=== PATIENT | female | born 1950 | race Caucasian/White ===

== ENCOUNTER → 2018-02-11 | Outpatient (CLI) | payer BC, MEDICARE ==
[2017-09-20 09:37] VITALS: BMI 34.5
[~2018-02-11] MED LIST: ACE500 PO; ALB17R INH; AZIT1PAC21 PO; AZIT500T47 PO; BENA1TAB48 PO; BENA20TA3 PO; BENZ100C4 PO; BP PILL; CEPH-13 PO; CEPH250C37 PO; CIP500 PO; CITA10SO7 PO; CYCL10TA29 PO; DAR100 PO; DESV50TA9 PO; DOCU-202 PO; DULO30CA35 PO; DYA PO; ENA5 PO; FAMO20TA28 PO; HYDR-4309 PO; HYDR12.556 PO; HYDR28.415 TP; IBU600 PO; LAMO1000; LAMO100T52 PO; LOR5 PO; LOR5/325 PO; LOS50 PO; LOSA25TA50 PO; LOSA25TA51 PO; LOSA50TA72 PO; MIRT-20 PO; OLM20 PO; OLME1TAB54 PO; ONDA4TAB PO; OXYC-854 PO; OXYC-865 PO; PHEN120S18 PO; PRAVASTATIN; PRE20 PO; RIVA20TA PO; SULF-196 PO; TRAZ-163 PO; VENL37.594 PO; WAR25 PO; WAR5 PO; WARF-12 PO; WARF2.5T4 PO; [UNRECOGNIZED DRUG - CODE] PO
[2018-02-11 12:44] LABS: PLATELET COUNT, AUTOMATED 323 K/uL (150-450)
== END ==
LOC: LAB 12:25
PROVIDERS: ATTEND Internal Medicine
DX: I10 Essential (primary) hypertension (principal); Z86.718 Personal history of other venous thrombosis and embolism; K43.9 Ventral hernia without obstruction or gangrene
CPT/HCPCS: 36415; 81001; 82040; 82247; 82310; 82374; 82435; 82465; 82565; 82947; 83718; 84075; 84132; 84155; 84295; 84450; 84460; 84478; 84520; 85025

== ENCOUNTER → 2018-02-13 | Outpatient (CLI) | payer BC ==
[2017-09-20 09:37] VITALS: BMI 34.5
[~2018-02-13] MED LIST changes: +Work Restrictions
== END ==
LOC: AMB 19:57
PROVIDERS: ATTEND Nurse Practitioner
DX: R07.9 Chest pain, unspecified (principal); R51 Headache; Z79.01 Long term (current) use of anticoagulants
CPT/HCPCS: A0425; A0427

== ENCOUNTER → 2018-03-03 | Outpatient (CLI) | payer BC, MEDICARE ==
[2017-09-20 09:37] VITALS: BMI 34.5
--- NOTE | 2018-03-04 09:02 | RADIOLOGY IMAGING REPORT ---
FACILITY: [facility] [place] PATIENT NAME: TEJAS MOORE : [id number] MR: [id number] V: [id number] EXAM DATE: [id number] ORDERING PHYSICIAN: CARLTON ZHONG TECHNOLOGIST: Whit Garcia PROCEDURE:BILATERAL DIGITAL SCREENING MAMMOGRAM WITH CAD ASSISTED INTERPRETATION & 3D TOMOSYNTHESIS COMPARISON:None. By history this is the patient's baseline mammogram. INDICATIONS:screening FINDINGS: Mildly heterogeneous fibroglandular tissue is seen throughout the breasts. There are 2 focal areas of increased density in the lateral portion of the Right breast for which spot compression view is recommended. There is an additional area of vague architectural distortion in the upper portion of the Right breast on the Right MLO view for which spot compression view is recommended. DIAGNOSTIC CATEGORY 0--INCOMPLETE: NEED ADDITIONAL IMAGING EVALUATION. RECOMMENDATIONS: ADDITIONAL MAMMOGRAPHIC VIEWS REQUIRED: RIGHT BREAST. IMPRESSION: BIRADS 0: Incomplete Additional view of the Right breast recommended as described. Dictated by: Tanisha Colón M.D. on 03/03/2018 at 15:22 Transcribed by: TENZIN on 03/03/2018 at 15:40 Approved by: Tanisha Colón M.D. on 03/04/2018 at 9:01 [facility]
== END ==
LOC: MAMO 03:05
PROVIDERS: ATTEND Nurse Practitioner Family
DX: Z12.31 Encounter for screening mammogram for malignant neoplasm of breast (principal); R92.8 Other abnormal and inconclusive findings on diagnostic imaging of breast
CPT/HCPCS: 77063; 77067

== ENCOUNTER → 2018-03-24 | Outpatient (CLI) | payer BC, MEDICARE ==
[2017-09-20 09:37] VITALS: BMI 34.5
[~2018-03-24] MED LIST changes: +[UNRECOGNIZED DRUG - REMARK]
--- NOTE | 2018-03-24 15:08 | RADIOLOGY IMAGING REPORT ---
FACILITY: [facility] [place] PATIENT NAME: TEJAS MOORE : [id number] MR: [id number] V: [id number] EXAM DATE: [id number] ORDERING PHYSICIAN: CARLTON ZHONG TECHNOLOGIST: Whit Garcia PROCEDURE:RIGHT DIGITAL DIAGNOSTIC MAMMOGRAM WITH CAD ASSISTED INTERPRETATION & 3D TOMOSYNTHESIS COMPARISON:Prior mammograms 03/03/18. INDICATIONS:FURTHER EVAL FINDINGS: The patient returns for Spot compression views in the Right CC and MLO projection in addition to rolled views in the Right CC and MLO projections. Mildly heterogeneous fibroglandular tissue is again seen throughout the Right breast. The two focal areas of increased density in the lateral portion of the Right breast appear partially compressible. These dissipated on the rolled view. The area of vague architectural distortion in the upper portion of the Right breast on the recent Right MLO view likewise dissipated on the rolled views. There is no demonstration of malignant appearing mass, malignant appearing calcifications or other secondary sign of malignancy in the Right breast. DIAGNOSTIC CATEGORY 2--BENIGN FINDING. RECOMMENDATIONS: ROUTINE MAMMOGRAM AND CLINICAL EVALUATION. IMPRESSION: BIRADS 2: Benign finding No significant abnormality is seen. Dictated by: Tanisha Colón M.D. on 03/24/2018 at 10:43 Transcribed by: TENZIN on 03/24/2018 at 11:05 Approved by: Tanisha Colón M.D. on 03/24/2018 at 15:07 [facility]
== END ==
LOC: MAMO 03-10 01:35
PROVIDERS: ATTEND Nurse Practitioner Family
DX: R92.8 Other abnormal and inconclusive findings on diagnostic imaging of breast (principal)
CPT/HCPCS: 77065

== ENCOUNTER 2018-05-02 19:21 | Emergency (ER) | payer BC ==
[2017-09-20 09:37] VITALS: Wt 83.9 kg
[~2018-05-02 19:21] MED LIST changes: +LOSA100T67 PO
--- NOTE | 2018-05-02 19:47 | ER Report ---
History and Physical Time Seen By MD: 19:47 Hx. of Stated Complaint: patient states that for the past 3 days she has been having left leg pain; pain is in the knee area; today the knee buckled down HPI/ROS CHIEF COMPLAINT: Left knee pain HISTORY OF PRESENT ILLNESS: 67-year-old female patient presents to emergency room with complaint of left knee pain. Patient states she's been having pain for the last several days. She states that she has noticed some swelling. Patient is concerned that she may have a DVT as she has a history of DVTs in the past. Patient is currently taking Xarelto for this. She states that the pain has become so significant that her knee has buckled numerous occasions. She states she has not fallen but almost fell today. She states that her boss noticed this and recommended that she come in for evaluation. He shouldn't denies any injury to the knee recently. She states that she does have pain, which seems to be more on the lateral and medial aspects of the knee. She denies any bruising. REVIEW OF SYSTEMS: Respiratory: No cough, no dyspnea. Cardiovascular: No chest pain, no palpitations. Gastrointestinal: No vomiting, no abdominal pain. Musculoskeletal: As noted above Allergies: Coded Allergies: trazodone (Verified Allergy, Intermediate, rash, 05/02/18) duloxetine (Verified Allergy, Mild, gout, 05/02/18) stopped by her psych doc due to possible gout reaction iohexol (Verified Allergy, Unknown, 05/02/18) Uncoded Allergies: BANDAIDS (Allergy, Intermediate, ITCHING, 05/21/13) PT STATES SHE GETS ITCHY AND BLISTERS AROUND WOUND ON LEFT ANKLE WHEN SHE WEARS BANDAIDS DOG (Allergy, Mild, EYES MATTED SWELLING, 07/08/10) Contrast Dye (Allergy, Unknown, 11/07/17) IV contrast (Allergy, Unknown, hives, 12/13/14) Home Meds Active Scripts Tramadol Hcl (TRAMADOL HCL) 50 Mg Tablet, 50 MG PO Q4-6H Y for PAIN, #12 TAB Prov:NICHOL CORCORAN LINE PILOT 05/02/18 Hydrochlorothiazide (HYDROCHLOROTHIAZIDE) 12.5 Mg Capsule, 1 TAB PO QDAY, #90 CAPSULE 3 Refills TAKE ONE CAPSULE BY MOUTH EVERY DAY Prov:CARLTON ZHONG APRN LINE PILOT-C 04/25/18 Losartan Potassium (LOSARTAN POTASSIUM) 100 Mg Tablet, 1 TAB PO QDAY, #90 TAB 1 Refill Prov:CARLTON ZHONG APRN LINE PILOT-C 04/08/18 Rivaroxaban 20 Mg (XARELTO 20 MG) 20 Mg Tablet, 1 TAB PO DAILY, #90 TAB 3 Refills Prov:CYNDY JOHN MD 11/19/17 Discontinued Scripts [Off work] No Conflict Check Please excuse Ms. Arreola from work, Thursday 03/22 and Friday 03/23 due to illness. Prov:ELMER WIGGINS Vladimir LINE PILOT-BC 03/21/18 [Work Restrictions] No Conflict Check Prov:CARLTON ZHONG APRN LINE PILOT-C 02/25/18 Past Medical/Surgical History Patient has a past medical history of DVT, pulmonary embolism, hypertension, pneumonia, reflux, cholecystitis, hiatal hernia, left ankle fracture, back pain , depression, anxiety, suicide attempt. Patient has a surgical history of easy ALT for venous ulcer, tonsillectomy, left knee surgery, hysterectomy, removal of polyp and system:, Hernia repair. Patient has a family medical history of cancer, CAD, diabetes, psychiatric problems. Reviewed Nurses Notes: Yes Hx Smoking: Yes (QUIT 1994, 12/03 PPD X 20 YEARS ) Smoking Status: Former Smoker Exposure to Second Hand Smoke?: No Hx Substance Use Disorder: No Hx Alcohol Use: No Constitutional Vital Sign - Last 24 Hours 05/02/18 05/02/18 05/02/18 05/02/18 19:25 19:28 19:30 19:45 Temp 98.6 Pulse 80 Resp 18 B/P (MAP) 128/83 (98) 128/83 106/76 (86) 87/62 (70) Pulse Ox 95 O2 Delivery Room Air 05/02/18 05/02/18 05/02/18 05/02/18 19:51 20:00 20:15 20:21 Pulse 72 71 B/P (MAP) 116/75 (89) 106/85 (92) Pulse Ox 94 93 05/02/18 05/02/18 05/02/18 05/02/18 20:30 20:45 20:51 21:00 Pulse 66 B/P (MAP) 94/72 (79) 101/69 (80) 101/65 (77) Pulse Ox 95 6/1/18 6/1/18 6/1/18 6/1/18 21:15 21:20 21:30 21:45 Pulse 71 B/P (MAP) 114/77 (89) 97/65 (76) 114/70 (85) Pulse Ox 90 05/02/18 05/02/18 21:50 22:02 Pulse 61 85 Resp 16 B/P (MAP) 115/72 (86) Pulse Ox 94 92 O2 Delivery Room Air Physical Exam General Appearance: The patient is alert, has no immediate need for airway protection and no current signs of toxicity. Respiratory: Chest is non tender, lungs are clear to auscultation. Cardiac: regular rate and rhythm Gastrointestinal: Abdomen is soft and non tender, no masses, bowel sounds normal. Musculoskeletal: Neck: Neck is supple and non tender. Extremities have full range of motion and are non tender. Patient does have tenderness to the left knee, there is no bruising, left leg does seem slightly larger than the right. Patient has good pulses. Skin: No rashes or lesions. DIFFERENTIAL DIAGNOSIS: After history and physical exam differential diagnosis was considered for DVT, knee strain, knee sprain, osteoarthritis, knee pain. Medical Decision Making Data Points Result Diagram: 05/02/18202005/02/182020 Laboratory Hematology Test 05/02/18 20:21 Red Blood Count 4.60 M/uL (4.17-5.56) Mean Corpuscular Volume 84.4 fL (80.0-96.0) Mean Corpuscular Hemoglobin 29.1 pg (26.0-33.0) Mean Corpuscular Hemoglobin Concent 34.5 g/dL (32.0-36.0) Red Cell Distribution Width 15.2 % (11.5-14.5) Mean Platelet Volume 7.3 fL (7.2-11.1) Neutrophils (%) (Auto) 72.3 % (39.4-72.5) Lymphocytes (%) (Auto) 18.7 % (17.6-49.6) Monocytes (%) (Auto) 7.2 % (4.1-12.4) Eosinophils (%) (Auto) 1.2 % (0.4-6.7) Basophils (%) (Auto) 0.6 % (0.3-1.4) Nucleated RBC Relative Count (auto) 0.1 /100WBC Neutrophils # (Auto) 5.2 K/uL (2.0-7.4) Lymphocytes # (Auto) 1.3 K/uL (1.3-3.6) Monocytes # (Auto) 0.5 K/uL (0.3-1.0) Eosinophils # (Auto) 0.1 K/uL (0.0-0.5) Basophils # (Auto) 0.0 K/uL (0.0-0.1) Nucleated RBC Absolute Count (auto) 0.01 K/uL Prothrombin Time 14.4 seconds (12.0-14.4) Prothromb Time International Ratio 1.11 Activated Partial Thromboplast Time 29 seconds (23-35) Sodium Level 139 mmol/L (137-145) Potassium Level 3.4 mmol/L (3.5-5.0) Chloride Level 101 mmol/L (98-107) Carbon Dioxide Level 26 mmol/L (22-31) Blood Urea Nitrogen 19 mg/dl (7-18) Creatinine 1.30 mg/dl (0.52-1.04) Glomerular Filtration Rate Calc 41.1 Random Glucose 97 mg/dl (75-110) Calcium Level 9.0 mg/dl (8.4-10.2) Total Bilirubin 0.8 mg/dl (0.2-1.3) Aspartate Amino Transf (AST/SGOT) 16 U/L (0-35) Alanine Aminotransferase (ALT/SGPT) 19 U/L (0-56) Alkaline Phosphatase 104 U/L (0-126) Troponin I < 0.012 ng/ml Total Protein 6.7 gm/dl (6.3-8.2) Albumin 4.0 g/dl (3.5-5.0) Chemistry Test 05/02/18 20:21 White Blood Count 7.2 k/uL (4.5-11.0) Red Blood Count 4.60 M/uL (4.17-5.56) Hemoglobin 13.4 g/dL (12.0-16.0) Hematocrit 38.8 % (34.0-47.0) Mean Corpuscular Volume 84.4 fL (80.0-96.0) Mean Corpuscular Hemoglobin 29.1 pg (26.0-33.0) Mean Corpuscular Hemoglobin Concent 34.5 g/dL (32.0-36.0) Red Cell Distribution Width 15.2 % (11.5-14.5) Platelet Count 258 K/uL (150-450) Mean Platelet Volume 7.3 fL (7.2-11.1) Neutrophils (%) (Auto) 72.3 % (39.4-72.5) Lymphocytes (%) (Auto) 18.7 % (17.6-49.6) Monocytes (%) (Auto) 7.2 % (4.1-12.4) Eosinophils (%) (Auto) 1.2 % (0.4-6.7) Basophils (%) (Auto) 0.6 % (0.3-1.4) Nucleated RBC Relative Count (auto) 0.1 /100WBC Neutrophils # (Auto) 5.2 K/uL (2.0-7.4) Lymphocytes # (Auto) 1.3 K/uL (1.3-3.6) Monocytes # (Auto) 0.5 K/uL (0.3-1.0) Eosinophils # (Auto) 0.1 K/uL (0.0-0.5) Basophils # (Auto) 0.0 K/uL (0.0-0.1) Nucleated RBC Absolute Count (auto) 0.01 K/uL Prothrombin Time 14.4 seconds (12.0-14.4) Prothromb Time International Ratio 1.11 Activated Partial Thromboplast Time 29 seconds (23-35) Glomerular Filtration Rate Calc 41.1 Calcium Level 9.0 mg/dl (8.4-10.2) Total Bilirubin 0.8 mg/dl (0.2-1.3) Aspartate Amino Transf (AST/SGOT) 16 U/L (0-35) Alanine Aminotransferase (ALT/SGPT) 19 U/L (0-56) Alkaline Phosphatase 104 U/L (0-126) Troponin I < 0.012 ng/ml Total Protein 6.7 gm/dl (6.3-8.2) Albumin 4.0 g/dl (3.5-5.0) Coagulation Test 05/02/18 20:21 Prothrombin Time 14.4 seconds Prothromb Time International Ratio 1.11 Activated Partial Thromboplast Time 29 seconds EKG/Imaging EKG Interpretation 12 lead EKG: Rhythm: normal sinus rhythm [place]: normal QRS: normal ST segments: Nonspecific T-wave abnormality. Imaging Examination: KNEE 4 VIEW LEFT Comparison: None. History: Posterior knee pain for 3 days. Findings: No fracture. Alignment is within normal limits. Animal femorotibial and patellofemoral compartment joint space loss. Superior patellar pole spurring. No joint effusion. No soft tissue abnormality. IMPRESSION: 1. No left knee fracture or malalignment. 2. Minimal degenerative change. Report Dictated By: Stephon Hameed MD at 05/02/2018 8:18 PM Report E-Signed By: Stephon Hameed MD at 05/02/2018 8:19 PM EXAMINATION: LEFT LOWER EXTREMITY DOPPLER VENOUS ULTRASOUND DATE: 05/02/2018 7:52 PM INDICATION: Knee pain, history of deep vein thrombosis. TECHNIQUE: Grayscale, color and pulsed Doppler ultrasound was performed of the left lower extremity veins to evaluate for deep venous thrombosis. COMPARISON: 12/01/2016. FINDINGS: The left common femoral, superficial femoral, and popliteal veins are compressible with normal flow on color Doppler and preserved venous waveform variation. There is also normal color Doppler flow in the profunda femoris and greater saphenous veins. The left posterior tibial and anterior tibial veins have patent color Doppler flow. The contralateral right common femoral vein demonstrates normal flow on color Doppler and respiratory variations on pulsed Doppler. IMPRESSION: No evidence of deep venous thrombosis in the left lower extremity. Report Dictated By: Uri Chacon MD at 05/02/2018 9:29 PM Report E-Signed By: Uri Chacon MD at 05/02/2018 9:31 PM ED Course/Re-evaluation ED Course Patient was admitted to exam room, history and physical were obtained. Differential diagnoses were considered. On examination patient has tenderness to the left knee, both medial and lateral sides. There is swelling to the left lower extremity, however believe this likely normal for the patient. An x-ray was done of the left knee, a ultrasound was performed of the left leg as well. A CBC, CMP, PT, PTT, troponin and EKG were done. EKG was unremarkable, labs were also unremarkable. Left knee x-ray was normal and ultrasound of the left leg was negative. Discuss findings with the patient. We'll go ahead and place her in a knee immobilizer. We'll have her follow-up with her primary care provider next week. She is to take tramadol as needed for pain for the next couple days. She is to return to emergency room if condition worsens. Patient verbalized understanding and agreement with plan. Decision to Disposition Date: May 02, 2018 Decision to Disposition Time: 21:45 Depart Departure Latest Vital Signs Vital Signs Date Time Temp Pulse Resp B/P (MAP) Pulse Ox O2 Delivery O2 Flow Rate FiO2 05/02/18 22:02 85 16 115/72 (86) 92 Room Air 05/02/18 19:28 98.6 Impression: Primary Impression: Knee pain, acute Condition: Improved Disposition: HOME OR SELF-CARE Referrals: CYNDY JOHN MD (PCP) New Scripts Tramadol Hcl (TRAMADOL HCL) 50 Mg Tablet 50 MG PO Q4-6H Y for PAIN, #12 TAB Prov: NICHOL CORCORAN 05/02/18 Patient Instructions: Knee Pain (ED) Additional Instructions: Limit activity by pain. Ice the knee 2-3 times a day for 10-15 minutes. Get plenty of rest. Follow up with your primary care provider in the next week. Return to the ER if condition worsens. No heavy lifting. Problem Qualifiers Primary Impression: Knee pain, acute Laterality: left Qualified Codes: M25.562 - Pain in left knee NICHOL CORCORAN May 02, 2018 19:47
--- NOTE | 2018-05-02 20:24 | RADIOLOGY IMAGING REPORT ---
FACILITY: [facility] PATIENT NAME: Cindy Arreola : 1950 MR: [id number] V: [id number] EXAM DATE: ORDERING PHYSICIAN: NICHOL CORCORAN TECHNOLOGIST: Location: [facility] Patient: Cindy Arreola : 1950 Visit/Account:[id number] Date of Sevice: 05/02/2018 Examination: KNEE 4 VIEW LEFT Comparison: None. History: Posterior knee pain for 3 days. Findings: No fracture. Alignment is within normal limits. Animal femorotibial and patellofemoral comp artment joint space loss. Superior patellar pole spurring. No joint effusion. No soft tissue abnormal ity. IMPRESSION: 1. No left knee fracture or malalignment. 2. Minimal degenerative change. Report Dictated By: Stephon Hameed MD at 05/02/2018 8:18 PM Report E-Signed By: Stephon Hameed MD at 05/02/2018 8:19 PM WSN:[id number]
[2018-05-02 20:33] LABS: PLATELET COUNT, AUTOMATED 258 K/uL (150-450)
[2018-05-02 20:35] LABS: INR 1.11
--- NOTE | 2018-05-02 20:35 | EKG ---
FACILITY: [facility] PATIENT NAME: TEJAS MOORE : [id number] MR: [id number] V: [id number] EXAM DATE: ORDERING PHYSICIAN: NICHOL CORCORAN TECHNOLOGIST: NEO Test Reason : L LEG NUMBNESS Blood Pressure : / mmHG Vent. Rate : 066 BPM Atrial Rate : 066 BPM P-R Int : 130 ms QRS Dur : 074 ms QT Int : 428 ms P-R-T Axes : 036 -21 006 degrees QTc Int : 448 ms Normal sinus rhythm Possible Left atrial enlargement Septal infarct , age undetermined T wave abnormality, consider anterior ischemia Abnormal ECG When compared with ECG of 01-DEC-2016 12:12, Septal infarct is now present T wave inversion now evident in Anterior leads Confirmed by LIZETH PRIEST ([id number]) on 05/03/2018 6:30:40 AM Referred By: Confirmed By:LIZETH PRIEST
--- NOTE | 2018-05-02 21:34 | RADIOLOGY IMAGING REPORT ---
FACILITY: [facility] [place] PATIENT NAME: Cindy Arreola : 1950 MR: [id number] V: [id number] EXAM DATE: ORDERING PHYSICIAN: NICHOL CORCORAN TECHNOLOGIST: Location: [facility] Patient: Cindy Arreola : 1950 Visit/Account:[id number] Date of Sevice: 05/02/2018 EXAMINATION: LEFT LOWER EXTREMITY DOPPLER VENOUS ULTRASOUND DATE: 05/02/2018 7:52 PM INDICATION: Knee pain, history of deep vein thrombosis. TECHNIQUE: Grayscale, color and pulsed Doppler ultrasound was performed of the left lower extremity v [facility] to evaluate for deep venous thrombosis. COMPARISON: 12/01/2016. FINDINGS: The left common femoral, superficial femoral, and popliteal veins are compressible with normal flow o n color Doppler and preserved venous waveform variation. There is also normal color Doppler flow in t he profunda femoris and greater saphenous veins. The left posterior tibial and anterior tibial veins have patent color Doppler flow. The contralateral right common femoral vein demonstrates normal flow on color Doppler and respiratory variations on pulsed Doppler. IMPRESSION: No evidence of deep venous thrombosis in the left lower extremity. Report Dictated By: Uri Chacon MD at 05/02/2018 9:29 PM Report E-Signed By: Uri Chacon MD at 05/02/2018 9:31 PM WSN:[id number]
[2018-05-02] MEDS ORDERED: TRAM-420 PO (21:43)
[2018-05-02] MEDS ORDERED: traMADol 50 MG TAB PO ONE (21:45)
[2018-05-02 22:02] VITALS: BP 115/72
== END 2018-05-02 22:05 | disposition home or self-care (01) ==
LOC: ER 19:53
DX: M25.562 Pain in left knee (principal); R94.31 Abnormal electrocardiogram [ECG] [EKG]
CPT/HCPCS: 73564; 82040; 82247; 82310; 82374; 82435; 82565; 82947; 84075; 84132; 84155; 84295; 84450; 84460; 84484; 84520; 85025; 85610; 85730; 93005; 99283; 99284

== ENCOUNTER 2018-07-16 16:08 | Emergency (ER) | payer BC ==
[2017-09-20 09:37] VITALS: Wt 94.8 kg
[~2018-07-16 16:08] MED LIST changes: +TRAM-420 PO; -TRAZ-163 PO; +TRAZ100T31 PO
[2018-07-16] MEDS ORDERED: ASPIRIN 81 MG CHEW PO ONE (16:20)
--- NOTE | 2018-07-16 16:24 | EKG ---
[place] [facility] TEJAS MOORE : [id number] MR: [id number] V: [id number] EXAM DATE: ORDERING PHYSICIAN: EMERALD QUINTANILLA TECHNOLOGIST: RIDGE Test Reason : SOB Blood Pressure : / mmHG Vent. Rate : 088 BPM Atrial Rate : 088 BPM P-R Int : 140 ms QRS Dur : 072 ms QT Int : 372 ms P-R-T Axes : 028 -23 016 degrees QTc Int : 450 ms Normal sinus rhythm Possible Left atrial enlargement Borderline ECG When compared with ECG of 02-MAY-2018 20:16, Criteria for Septal infarct are no longer present Confirmed by INA STREET ([id number]) on 07/16/2018 9:39:01 PM Referred By: DWIGHT Confirmed By:INA STREET
[2018-07-16 16:30] LABS: PLATELET COUNT, AUTOMATED 338 K/uL (150-450)
[2018-07-16] MEDS ORDERED: diphenhydrAMINE 50 MG/ML VIAL IVP ONE (16:30)
[2018-07-16] MEDS ORDERED: methylPREDNIS SUCC 125 MG/2ML IVP ONE (16:30)
[2018-07-16 16:35] LABS: INR 1.11
--- NOTE | 2018-07-16 16:51 | RADIOLOGY IMAGING REPORT ---
FACILITY: [facility] [place] PATIENT NAME: Cindy Arreola : 1950 MR: [id number] V: [id number] EXAM DATE: ORDERING PHYSICIAN: EMERALD QUINTANILLA TECHNOLOGIST: [place] [facility] [place]: Cindy Arreola : 1950 Visit/Account:[id number] Date of Sevice: 07/16/2018 Exam type: CHEST SINGLE AP History: Chest pain x3 days Comparison: Two-view chest March 17, 2016. Findings: The lungs are free of acute effusions, infiltrates or edema. The cardiomediastinal silhouette and pu lmonary vessels appear stable. There is no evidence of a pneumothorax or pneumomediastinum. The tra vicky is in midline. There are surgical clips in right upper quadrant abdomen IMPRESSION: 1. No acute cardiopulmonary process is seen Report Dictated By: Tanisha Colón MD at 07/16/2018 4:45 PM Report E-Signed By: Tanisha Colón MD at 07/16/2018 4:46 PM WSN:[email or web address]
[2018-07-16] MEDS ORDERED: IOPAMIDOL 76% 75 ML INFUS BTL 75 ML ONE (16:52)
[2018-07-16] MEDS ORDERED: NS 0.9% 25 ML BAG 50 ML ONE (16:52)
[2018-07-16] MEDS ORDERED: NS(*) 0.9% 1000 ML BAG 1,000 ML IV ONE (16:55)
--- NOTE | 2018-07-16 17:31 | ER Report ---
History and Physical Time Seen By MD: 16:11 Hx. of Stated Complaint: PATIENT REPORTS SHORTNESS OF BREATH AND BACK PAIN FOR THE LAST WEEK. SHE REPORTS THAT THE PAIN IS WORSE WITH DEEP INSPIRATION HPI/ROS CHIEF COMPLAINT: Shortness of breath HISTORY OF PRESENT ILLNESS: Patient is a 67-year-old female who presents the ED with complaint of shortness of breath and chest pain. She states that she has had these symptoms for the past week but have been worsening. She states it has been intermittent. She states that the chest pain goes into her back at times and seems to be worse with deep breaths. 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 She states that she has not missed any doses of her Xarelto. She denies any leg pain but has noted bilateral leg swelling. She has had issues with leg swelling in the past. She denies any history of heart disease. Patient has not taken any medication for her symptoms. She denies any dizziness. She denies any radiation of the pain. She does not believe that the pain is worsened with exertion. REVIEW OF SYSTEMS: Constitutional: No fever, no chills. Eyes: No discharge. ENT: No sore throat. Cardiovascular: See history of present illness. No palpitations. Respiratory: See history of present illness. No cough. Gastrointestinal: No abdominal pain, no vomiting. Genitourinary: No hematuria. Musculoskeletal: No back pain. Skin: No rashes. Neurological: No headache. Allergies: Coded Allergies: trazodone (Verified Allergy, Intermediate, rash, 05/02/18) duloxetine (Verified Allergy, Mild, gout, 05/02/18) stopped by her psych doc due to possible gout reaction iohexol (Verified Allergy, Unknown, 05/02/18) Uncoded Allergies: BANDAIDS (Allergy, Intermediate, ITCHING, 05/21/13) PT STATES SHE GETS ITCHY AND BLISTERS AROUND WOUND ON LEFT ANKLE WHEN SHE WEARS BANDAIDS DOG (Allergy, Mild, EYES MATTED SWELLING, 07/08/10) Contrast Dye (Allergy, Unknown, 11/07/17) IV contrast (Allergy, Unknown, hives, 12/13/14) Home Meds Active Scripts Tramadol Hcl (TRAMADOL HCL) 50 Mg Tablet, 50 MG PO Q4-6H Y for PAIN, #12 TAB Prov:NICHOL CORCORAN SPINNER OPERATOR 05/02/18 Hydrochlorothiazide (HYDROCHLOROTHIAZIDE) 12.5 Mg Capsule, 1 TAB PO QDAY, #90 CAPSULE 3 Refills TAKE ONE CAPSULE BY MOUTH EVERY DAY Prov:TREVINCARLTON NISH SPINNER OPERATOR-C 04/25/18 Losartan Potassium (LOSARTAN POTASSIUM) 100 Mg Tablet, 1 TAB PO QDAY, #90 TAB 1 Refill Prov:CARLTON ZHONG APRNP-C 04/08/18 Rivaroxaban 20 Mg (XARELTO 20 MG) 20 Mg Tablet, 1 TAB PO DAILY, #90 TAB 3 Refills Prov:CYNDY JOHN MD 11/19/17 Reviewed Nurses Notes: Yes Old Medical Records Reviewed: Yes Hx Smoking: Yes (QUIT 1994, 12/03 PPD X 20 YEARS ) Smoking Status: Former Smoker Exposure to Second Hand Smoke?: No Hx Substance Use Disorder: No Hx Alcohol Use: No Constitutional Vital Sign - Last 24 Hours 07/16/18 07/16/18 07/16/18 07/16/18 16:10 16:10 16:23 16:30 Temp 97.5 Pulse 95 83 Resp 20 12 B/P (MAP) 106/80 (89) 106/80 90/62 (71) Pulse Ox 93 94 O2 Delivery Room Air 07/16/18 07/16/18 07/16/18 07/16/18 16:35 16:50 17:00 17:05 Pulse 86 86 76 Resp 30 13 B/P (MAP) 126/91 (103) Pulse Ox 95 93 97 07/16/18 07/16/18 07/16/18 07/16/18 17:10 17:30 17:40 18:00 Pulse 71 72 Resp 9 19 B/P (MAP) 123/76 (92) 102/64 (77) Pulse Ox 99 95 Intake and Output 07/16/18 07/16/18 07/17/18 14:59 22:59 06:59 Intake Total 1000 ml Balance 1000 ml Physical Exam General Appearance: The patient is alert, has no immediate need for airway protection and no signs of toxicity. Patient appears to be no acute distress. Eyes: Pupils equal and round no pallor or injection. ENT, Mouth: Mucous membranes are moist. Respiratory: There are no retractions, lungs are clear to auscultation. Cardiovascular: Regular rate and rhythm. Gastrointestinal: Abdomen is soft and non tender, no masses, bowel sounds normal. Skin: Warm and dry, no rashes. Musculoskeletal: Neck is supple non tender. Extremities are nontender, nonswollen and have full range of motion. DIFFERENTIAL DIAGNOSIS: After history and physical exam differential diagnosis was considered for shortness of breath including but not limited to pulmonary infectious process, COPD, asthma, pulmonary embolus and congestive heart failure. Medical Decision Making Data Points Result Diagram: 07/16/18 1613 07/16/18 1613 Laboratory Hematology Test 07/16/18 16:13 07/16/18 19:17 Red Blood Count 5.27 M/uL (4.17-5.56) Mean Corpuscular Volume 84.1 fL (80.0-96.0) Mean Corpuscular Hemoglobin 29.0 pg (26.0-33.0) Mean Corpuscular Hemoglobin Concent 34.5 g/dL (32.0-36.0) Red Cell Distribution Width 14.8 % (11.5-14.5) Mean Platelet Volume 7.7 fL (7.2-11.1) Neutrophils (%) (Auto) 76.7 % (39.4-72.5) Lymphocytes (%) (Auto) 15.5 % (17.6-49.6) Monocytes (%) (Auto) 6.1 % (4.1-12.4) Eosinophils (%) (Auto) 1.0 % (0.4-6.7) Basophils (%) (Auto) 0.7 % (0.3-1.4) Nucleated RBC Relative Count (auto) 0.0 /100WBC Neutrophils # (Auto) 7.5 K/uL (2.0-7.4) Lymphocytes # (Auto) 1.5 K/uL (1.3-3.6) Monocytes # (Auto) 0.6 K/uL (0.3-1.0) Eosinophils # (Auto) 0.1 K/uL (0.0-0.5) Basophils # (Auto) 0.1 K/uL (0.0-0.1) Nucleated RBC Absolute Count (auto) 0.00 K/uL Prothrombin Time 14.4 seconds (12.0-14.4) Prothromb Time International Ratio 1.11 Activated Partial Thromboplast Time 30 seconds (23-35) Sodium Level 142 mmol/L (137-145) Potassium Level 3.4 mmol/L (3.5-5.0) Chloride Level 102 mmol/L (98-107) Carbon Dioxide Level 27 mmol/L (22-31) Blood Urea Nitrogen 20 mg/dl (7-18) Creatinine 1.40 mg/dl (0.52-1.04) Glomerular Filtration Rate Calc 37.7 Random Glucose 127 mg/dl (75-110) Calcium Level 9.6 mg/dl (8.4-10.2) Total Bilirubin 0.8 mg/dl (0.2-1.3) Aspartate Amino Transf (AST/SGOT) 21 U/L (0-35) Alanine Aminotransferase (ALT/SGPT) 18 U/L (0-56) Alkaline Phosphatase 95 U/L (0-126) B-Type Natriuretic Peptide 12 pg/ml (0-100) Total Protein 7.7 g/dl (6.3-8.2) Albumin 4.7 g/dl (3.5-5.0) Troponin I < 0.012 ng/ml Chemistry Test 07/16/18 16:13 07/16/18 19:17 White Blood Count 9.8 k/uL (4.5-11.0) Red Blood Count 5.27 M/uL (4.17-5.56) Hemoglobin 15.3 g/dL (12.0-16.0) Hematocrit 44.3 % (34.0-47.0) Mean Corpuscular Volume 84.1 fL (80.0-96.0) Mean Corpuscular Hemoglobin 29.0 pg (26.0-33.0) Mean Corpuscular Hemoglobin Concent 34.5 g/dL (32.0-36.0) Red Cell Distribution Width 14.8 % (11.5-14.5) Platelet Count 338 K/uL (150-450) Mean Platelet Volume 7.7 fL (7.2-11.1) Neutrophils (%) (Auto) 76.7 % (39.4-72.5) Lymphocytes (%) (Auto) 15.5 % (17.6-49.6) Monocytes (%) (Auto) 6.1 % (4.1-12.4) Eosinophils (%) (Auto) 1.0 % (0.4-6.7) Basophils (%) (Auto) 0.7 % (0.3-1.4) Nucleated RBC Relative Count (auto) 0.0 /100WBC Neutrophils # (Auto) 7.5 K/uL (2.0-7.4) Lymphocytes # (Auto) 1.5 K/uL (1.3-3.6) Monocytes # (Auto) 0.6 K/uL (0.3-1.0) Eosinophils # (Auto) 0.1 K/uL (0.0-0.5) Basophils # (Auto) 0.1 K/uL (0.0-0.1) Nucleated RBC Absolute Count (auto) 0.00 K/uL Prothrombin Time 14.4 seconds (12.0-14.4) Prothromb Time International Ratio 1.11 Activated Partial Thromboplast Time 30 seconds (23-35) Glomerular Filtration Rate Calc 37.7 Calcium Level 9.6 mg/dl (8.4-10.2) Total Bilirubin 0.8 mg/dl (0.2-1.3) Aspartate Amino Transf (AST/SGOT) 21 U/L (0-35) Alanine Aminotransferase (ALT/SGPT) 18 U/L (0-56) Alkaline Phosphatase 95 U/L (0-126) B-Type Natriuretic Peptide 12 pg/ml (0-100) Total Protein 7.7 g/dl (6.3-8.2) Albumin 4.7 g/dl (3.5-5.0) Troponin I < 0.012 ng/ml Coagulation Test 07/16/18 16:13 Prothrombin Time 14.4 seconds Prothromb Time International Ratio 1.11 Activated Partial Thromboplast Time 30 seconds EKG/Imaging EKG Interpretation 12 lead EK Rhythm: Normal sinus rhythm, rate 80 bpm Geronimo: normal QRS: normal ST segments: No acute ST changes identified. There is some T-wave inversion in V1 and V2. 12 lead EKG: Rhythm: Normal sinus rhythm with sinus arrhythmia, rate 69 bpm Geronimo: normal QRS: normal ST segments: No acute ST changes identified. There is some T-wave inversion in V1 and T-wave flattening in V2. Monitor Interpretation: Normal Sinus Rhythm Imaging CXR: IMPRESSION: 1. No acute cardiopulmonary process is seen Report Dictated By: Tanisha Colón MD at 07/16/2018 4:45 PM Report E-Signed By: Tanisha Colón MD at 07/16/2018 4:46 PM CTA Chest PE Protocol: IMPRESSION: Negative for pulmonary arterial embolus. One of the following dose optimization techniques was utilized in the performance of this exam: Automated exposure control; adjustment of the mA and/ or kV according to the patient's size; or use of an iterative reconstruction technique. Specific details can be referenced in the facility's radiology CT exam operational policy. Report Dictated By: Jamal Saunders MD at 07/16/2018 5:51 PM Report E-Signed By: Jamal Saunders MD at 07/16/2018 6:00 PM ED Course/Re-evaluation ED Course Will obtain labs, EKG, imaging. Discussed patient with Dr. Waldron, emergency department, and discussed her allergy to IV contrast. She states that she just had hives in the past when she had IV and by mouth contrast but has had multiple IV contrast CTs in the past. Patient will be given 1 L normal saline bolus, 50 mg IV Benadryl, 125 mg IV Solu-Medrol and have the CTA of the chest completed. 07/16/2018 8:19:07 pm - discussed all labs and imaging with patient. Waiting on a delta troponin. 07/16/2018 8:23:36 pm - discussed delta troponin results with patient which was normal. Uncertain of etiology of her chest pain and shortness of breath may be secondary to muscle skeletal issue. Advised follow-up with the primary care provider regarding these symptoms. Decision to Disposition Date: Jul 16, 2018 Decision to Disposition Time: 20:24 Depart Departure Latest Vital Signs Vital Signs Date Time Temp Pulse Resp B/P (MAP) Pulse Ox O2 Delivery O2 Flow Rate FiO2 07/16/18 18:00 102/64 (77) 07/16/18 17:40 72 19 95 07/16/18 16:10 97.5 Room Air Impression: Primary Impression: Chest pain Additional Impression: Shortness of breath Condition: Improved Disposition: HOME OR SELF-CARE Patient Instructions: Chest Pain (ED), Dyspnea (ED) Additional Instructions: Stay well-hydrated. Follow-up with primary care provider in 2-3 days. If having any worsening or concerning symptoms may return to the emergency department. Problem Qualifiers Primary Impression: Chest pain Chest pain type: unspecified Qualified Codes: R07.9 - Chest pain, unspecified EMERALD QUINTANILLA PA-C Jul 16, 2018 17:30
--- NOTE | 2018-07-16 18:03 | RADIOLOGY IMAGING REPORT ---
FACILITY: [facility] - [place] PATIENT NAME: Cindy Arreola : 1950 MR: [id number] V: [id number] EXAM DATE: ORDERING PHYSICIAN: EMERALD QUINTANILLA TECHNOLOGIST: Location: [facility] [place] Patient: Cindy Arreola : 1950 Visit/Account:[id number] Date of Sevice: 07/16/2018 CT ANGIOGRAM OF THE CHEST WITH INTRAVENOUS CONTRAST, PE PROTOCOL DATE OF EXAM: 07/16/2018 16:28 COMPARISON: Chest radiograph of the same day INDICATION: pleuritic chest pain, SOB, h/o PE and DVT. TECHNIQUE: Contrast enhanced chest CT performed during the injection of 75 ml of Isovue-370. Three-d imensional (MIP) reconstructions were performed. FINDINGS: No pulmonary arterial filling defect. Thyroid: There may be a nodule in the left lobe of the thyroid. Thoracic inlet: No thoracic inlet adenopathy. Heart and great vessels: Heart size is normal. Mild aortic arch atherosclerosis. Mediastinum and bishnu: No mediastinal or hilar adenopathy. Lungs and pleura: Mild scattered atelectasis and/or scar. No effusion, consolidation, or pneumothora x. Breast and axilla: Incompletely imaged breast tissue. Bones and soft tissues: No acute osseous abnormality. Upper abdomen: Surgically absent gallbladder. IMPRESSION: Negative for pulmonary arterial embolus. One of the following dose optimization techniques was utilized in the performance of this exam: Autom ated exposure control; adjustment of the mA and/or kV according to the patient's size; or use of an i terative reconstruction technique. Specific details can be referenced in the facility's radiology C T exam operational policy. Report Dictated By: Jamal Saunders MD at 07/16/2018 5:51 PM Report E-Signed By: Jamal Saunders MD at 07/16/2018 6:00 PM WSN:[id number]
--- NOTE | 2018-07-16 19:15 | EKG ---
FACILITY: [facility] PATIENT NAME: TEJAS MOORE : [id number] MR: [id number] V: [id number] EXAM DATE: ORDERING PHYSICIAN: EMERALD QUINTANILLA TECHNOLOGIST: RIDGE Test Reason : REPEAT Blood Pressure : / mmHG Vent. Rate : 069 BPM Atrial Rate : 069 BPM P-R Int : 134 ms QRS Dur : 074 ms QT Int : 410 ms P-R-T Axes : 048 -12 030 degrees QTc Int : 439 ms Normal sinus rhythm with sinus arrhythmia Normal ECG When compared with ECG of 16-JUL-2018 16:16, T wave inversion no longer evident in Anterior leads Confirmed by INA STREET ([id number]) on 07/16/2018 9:39:23 PM Referred By: DWIGHT Confirmed By:INA STREET
[2018-07-16 20:00] VITALS: BP 102/68
== END 2018-07-16 20:30 | disposition home or self-care (01) ==
LOC: ER 16:25
DX: R07.89 Other chest pain (principal); R06.02 Shortness of breath
CPT/HCPCS: 36415; 71045; 83880; 84484; 85025; 85610; 85730; 93005; 96361; 96374; 96375; 99284; J1200; J2930; J7030; Q9967; 71275; 82040; 82247; 82310; 82374; 82435; 82565; 82947; 84075; 84132; 84155; 84295; 84450; 84460; 84520

== ENCOUNTER → 2018-09-01 | Outpatient (CLI) | payer BC, MEDICARE ==
[2017-09-20 09:37] VITALS: BMI 34.5
[~2018-09-01] MED LIST changes: +ESCI10TA8 PO; -LOSA100T67 PO; +LOSA100T69 PO; -LOSA25TA50 PO; +LOSA25TA52 PO; -LOSA50TA72 PO; +LOSA50TA74 PO
--- NOTE | 2018-09-01 08:29 | RADIOLOGY IMAGING REPORT ---
FACILITY: [facility] PATIENT NAME: Cindy Arreola : 1950 MR: [id number] V: [id number] EXAM DATE: ORDERING PHYSICIAN: INA LEAL TECHNOLOGIST: Location: [facility] - [place] Patient: Cindy Arreola : 1950 Visit/Account:[id number] Date of Sevice: 09/01/2018 EXAMINATION: Abdomen and pelvis CT without contrast HISTORY: Abdominal pain TECHNIQUE: CT was performed through the abdomen and pelvis without iv contrast. Sagittal and coron al reformatted images were generated. One of the following dose optimization techniques was utilized in the performance of this exam: autom ated exposure control; adjustment of the mA and/or kV according to patient size; or use of iterative reconstruction technique. Specific details can be referenced in the facility's radiology CT exam ope rational policy. COMPARISON: October 04, 2017 FINDINGS: Lower chest: Normal. Spleen: Normal. Adrenal glands: Normal. Pancreas: Normal. Kidneys: Bilateral renal cysts. Otherwise normal. Liver / biliary: Surgically absent gallbladder. Normal liver. Vessels: Normal for age. Lymph node assessment: Normal. Bowel including small bowel, colon and appendix: Normal stomach, normal small bowel, suture line note d seen between a small bowel loop in the right hemicolon, axial image 79, appendix not visualized, no acute colonic abnormality. Peritoneum / retroperitoneum / mesentery: Ovoid fat-containing calcified structure in the right anter ior midabdomen in keeping with residua of prior fat necrosis or omental infarct measures 1.2 cm, axia l image 82 and exhibits increased calcification compared to prior. Pelvic structures: Normal bladder, absent uterus and normal rectum. No pelvic fluid or adenopathy . Body wall: Hernia postsurgical repair along the ventral midline abdomen. Resolution of the previousl y seen fluid collection in this area. Small ventral fat-containing hernia, axial image 80 is unchanged. Additional fat-containing ventral hernia measuring 5.2 cm is unchanged. Musculoskeletal: No fracture or osseous destruction. IMPRESSION: 1. No acute abnormality. 2. Unchanged fat-containing ventral midline hernias the largest measuring 5.2 cm. 3. Ventral hernia repair postsurgical change along the mid to lower abdomen with resolution of the p reviously seen fluid collection in this area. 4. Surgically absent gallbladder and uterus. Report Dictated By: Nick George MD at 09/01/2018 8:15 AM Report E-Signed By: Nick George MD at 09/01/2018 8:26 AM WSN:[email or web address]
== END ==
LOC: CT 01:17
PROVIDERS: ATTEND Surgery
DX: N28.1 Cyst of kidney, acquired (principal); Z90.49 Acquired absence of other specified parts of digestive tract; Z98.890 Other specified postprocedural states; K43.9 Ventral hernia without obstruction or gangrene; Z90.710 Acquired absence of both cervix and uterus; R10.84 Generalized abdominal pain; R19.7 Diarrhea, unspecified
CPT/HCPCS: 74176; 82274; 82705; 83630; 87045; 87177; 87205; 87324; 87449

== ENCOUNTER → 2018-09-08 | Outpatient (CLI) | payer BC, MEDICARE ==
[2017-09-20 09:37] VITALS: BMI 34.5
[~2018-09-08] MED LIST changes: +RAME8TAB43 PO
== END ==
LOC: LAB 10:40
PROVIDERS: ATTEND Nurse Practitioner Family
DX: I10 Essential (primary) hypertension (principal)
CPT/HCPCS: 36415; 82310; 82374; 82435; 82565; 82947; 84132; 84295; 84520

== ENCOUNTER 2018-09-24 00:31 | Day surgery (SDC) | payer BC, MEDICARE ==
[2017-09-20 09:37] VITALS: Ht 170.2 cm; Wt 87.5 kg
[2018-09-24] VITALS (8 sets, daily range): BP systolic 92–157; BP diastolic 56–118
[~2018-09-24] VITALS: Ht 170.2 cm; Wt 87.5 kg
[~2018-09-24 00:31] MED LIST changes: -HYDR-4309 PO; +HYDR-653 PO
[2018-09-24] MEDS ORDERED: LIDOCAINE/SOD BICARB 8.4% SYR ID ONE (08:55)
[2018-09-24] MEDS ORDERED: NORMOSOL R SOLN(*) 1000 ML BAG 1,000 ML IV PRN (08:55)
[2018-09-24] MEDS ORDERED: LIDOCAINE MPF 1% 5 ML VIAL ONE (10:00)
[2018-09-24] MEDS ORDERED: PROPOFOL EMUL(*) 10MG/ML 20 ML 40 ML ONE (10:00)
--- NOTE | 2018-09-24 10:10 | Short(Outpt) Discharge Summary ---
Discharge Summary Reason for Hosp/Final Diag: (1) Diarrhea Status: Chronic Hospital Course & Plan: Colonoscopy with biopsies completed without problems. (2) RLQ abdominal pain Status: Acute (3) Mucinous cystadenoma Status: Resolved Departure Discharge to: Home, Self Care Discharge Instructions Home Meds Active Scripts Ramelteon (ROZEREM) 8 Mg Tablet, 1 TAB PO QHS PRN for INSOMNIA, #14 TAB 0 Refills Prov:CARLTON ZHONG APRN OIL AND GAS LEASE PUMPER-C 09/09/18 Escitalopram Oxalate (ESCITALOPRAM OXALATE) 10 Mg Tablet, 1 TAB PO QDAY, #30 TAB 1 Refill Prov:CARLTON ZHONG APRN OIL AND GAS LEASE PUMPER-C 08/12/18 Tramadol Hcl (TRAMADOL HCL) 50 Mg Tablet, 50 MG PO Q4-6H PRN for PAIN, #12 TAB Prov:NICHOL CORCORAN OIL AND GAS LEASE PUMPER 05/02/18 Rivaroxaban 20 Mg (XARELTO 20 MG) 20 Mg Tablet, 1 TAB PO DAILY, #90 TAB 3 Refills Prov:CYNDY JOHN MD 11/19/17 Reported Medications Losartan Potassium (LOSARTAN POTASSIUM) 50 Mg Tablet, 1 TAB PO QDAY 08/12/18 Diet: Regular Activity: As Tolerated Special Instructions: Your colonscopy was completed without any problems and your prep was acceptable. I took biopsies of your small intestine you throughout your colon. I will discuss these results with you when I see you back in my office. Problem Qualifiers (1) Diarrhea: Diarrhea type: unspecified type Qualified Codes: R19.7 - Diarrhea, unspecified INA LEAL MD Sep 24, 2018 10:10
== END 2018-09-24 11:20 | disposition home or self-care (01) ==
LOC: OR 00:31
PROVIDERS: ATTEND Surgery
DX: K52.9 Noninfective gastroenteritis and colitis, unspecified (principal); K63.3 Ulcer of intestine; I10 Essential (primary) hypertension; I26.99 Other pulmonary embolism without acute cor pulmonale; F32.9 Major depressive disorder, single episode, unspecified; Z90.49 Acquired absence of other specified parts of digestive tract; Z88.8 Allergy status to other drugs, medicaments and biological substances; Z90.710 Acquired absence of both cervix and uterus; Z87.891 Personal history of nicotine dependence
CPT/HCPCS: 00811; 45380; 45385; 88305; J2001; J2704

== ENCOUNTER → 2018-10-06 | Outpatient (CLI) | payer BC, MEDICARE ==
[2017-09-20 09:37] VITALS: BMI 34.5
[~2018-10-06] MED LIST changes: +HYDR12.556
== END ==
LOC: LAB 09:55
PROVIDERS: ATTEND Nurse Practitioner Family
DX: R60.9 Edema, unspecified (principal); I10 Essential (primary) hypertension
CPT/HCPCS: 36415; 82310; 82374; 82435; 82565; 82947; 84132; 84295; 84520

== ENCOUNTER → 2018-10-16 | Outpatient (CLI) | payer BC ==
[2017-09-20 09:37] VITALS: BMI 34.5
[~2018-10-16] MED LIST changes: +PRED20TA6 PO
--- NOTE | 2018-10-16 15:42 | RADIOLOGY IMAGING REPORT ---
FACILITY: [facility] [place] PATIENT NAME: Cindy Arreola : 1950 MR: [id number] V: [id number] EXAM DATE: ORDERING PHYSICIAN: CARLTON ZHONG TECHNOLOGIST: [place] [facility] [place]: Cindy Arreola : 1950 Visit/Account:[id number] Date of Sevice: 10/16/2018 CHEST PA AND LAT INDICATION: SOB fever COMPARISON: None available FINDINGS: Heart size within normal limits. There is no focal infiltrate or lobar consolidation. There is no pneumothorax or pleural effusion. IMPRESSION: 1. No acute cardiopulmonary process. Report Dictated By: Karthik Chapa at 10/16/2018 3:37 PM Report E-Signed By: Karthik Chapa at 10/16/2018 3:38 PM WSN:[id number]
== END ==
LOC: RAD 15:14
PROVIDERS: ATTEND Nurse Practitioner Family
DX: R06.02 Shortness of breath (principal); R50.9 Fever, unspecified
CPT/HCPCS: 71046

== ENCOUNTER → 2018-10-31 | Outpatient (CLI) | payer BC, MEDICARE ==
[2017-09-20 09:37] VITALS: BMI 34.5
[~2018-10-31] MED LIST changes: +BUDE9TAB2 PO
== END ==
LOC: LAB 07:30
PROVIDERS: ATTEND Nurse Practitioner Family
DX: R25.2 Cramp and spasm (principal)
CPT/HCPCS: 36415; 82310; 82374; 82435; 82565; 82947; 83735; 84132; 84295; 84520

== ENCOUNTER → 2018-12-26 | Outpatient (CLI) | payer BC, MEDICARE ==
[2017-09-20 09:37] VITALS: BMI 34.5
[~2018-12-26] MED LIST changes: -LOSA100T69 PO; +LOSA100T75 PO; -LOSA25TA52 PO; +LOSA25TA57 PO; -LOSA50TA74 PO; +LOSA50TA80 PO
== END ==
LOC: LAB 07:35
PROVIDERS: ATTEND Nurse Practitioner Family
DX: I10 Essential (primary) hypertension (principal)
CPT/HCPCS: 36415; 82310; 82374; 82435; 82565; 82947; 84132; 84295; 84520

== ENCOUNTER 2019-01-16 17:20 | Emergency (ER) | payer BC ==
[2017-09-20 09:37] VITALS: Wt 95.0 kg
--- NOTE | 2019-01-16 17:33 | ER Report ---
History and Physical Time Seen By MD: 17:33 HPI/ROS CHIEF COMPLAINT: Leg pain HISTORY OF PRESENT ILLNESS: This is a 68-year-old female presents to the emergency department for right lower extremity pain. Patient states that she has a history of DVTs and pulmonary emboli, she's had a DVT in her left leg for approximately 15 years she's been on Xarelto for about 5 years, stepped off a step last week, injuring her left ankle, since then she's had increased right calf pain, today she became concerned when she feels the size has increased, noted to have some bruising to the back of the lower leg as well. She denies increased shortness of breath. No fevers or chills. No nausea or vomiting. No chest pain. No shortness of breath. REVIEW OF SYSTEMS: Constitutional: No fever, no chills. Eyes: No discharge. ENT: No sore throat. Cardiovascular: No chest pain, no palpitations. Respiratory: No cough, no shortness of breath. Gastrointestinal: No abdominal pain, no vomiting. Genitourinary: No hematuria. Musculoskeletal: As above. Skin: As above. Neurological: No headache. Allergies: Coded Allergies: trazodone (Verified Allergy, Intermediate, rash, 01/16/19) duloxetine (Verified Allergy, Mild, gout, 01/16/19) stopped by her psych doc due to possible gout reaction iohexol (Verified Allergy, Unknown, 01/16/19) Uncoded Allergies: BANDAIDS (Allergy, Intermediate, ITCHING, 05/21/13) PT STATES SHE GETS ITCHY AND BLISTERS AROUND WOUND ON LEFT ANKLE WHEN SHE WEARS BANDAIDS DOG (Allergy, Mild, EYES MATTED SWELLING, 07/08/10) Contrast Dye (Allergy, Unknown, 11/07/17) IV contrast (Allergy, Unknown, hives, 12/13/14) Home Meds Active Scripts Rivaroxaban 20 Mg (XARELTO 20 MG) 20 Mg Tablet, 1 TAB PO DAILY, #90 TAB 3 Refills Prov:CARLTON ZHONG APRNP-C 11/27/18 Escitalopram Oxalate (ESCITALOPRAM OXALATE) 10 Mg Tablet, 1 TAB PO QDAY, #90 TAB 1 Refill Prov:CARLTON ZHONG APRN FABRIC FINISHER-C 10/06/18 Ramelteon (ROZEREM) 8 Mg Tablet, 1 TAB PO QHS PRN for INSOMNIA, #14 TAB 0 Refills Prov:DAVID ZHONGYN NISH FABRIC FINISHER-C 09/09/18 Tramadol Hcl (TRAMADOL HCL) 50 Mg Tablet, 50 MG PO Q4-6H PRN for PAIN, #12 TAB Prov:NICHOL CORCORAN FABRIC FINISHER 05/02/18 Reported Medications Hydrochlorothiazide (HYDROCHLOROTHIAZIDE) 12.5 Mg Capsule 10/06/18 Losartan Potassium (LOSARTAN POTASSIUM) 50 Mg Tablet, 1 TAB PO QDAY 08/12/18 Discontinued Scripts Budesonide (Budesonide ER) 9 Mg Tabdr...er, 1 TAB PO QDAY, #60 TAB.SR 0 Refills Prov:INA LEAL MD 10/27/18 Past Medical/Surgical History The patient has a past medical and surgical history of DVTs, pulmonary emboli, hypertension, pneumonia, colonoscopy, GERD, gallbladder disease, hiatal hernia, left ankle fracture, right foot fracture, wears glasses, chronic back pain, C- section, depression, anxiety, cholecystectomy, hysterectomy, hernia repair 2, colonic cyst excision, left patellar repair, tonsillectomy. Reviewed Nurses Notes: Yes Hx Smoking: Yes (QUIT 1994, 12/03 PPD X 20 YEARS ) Smoking Status: Former Smoker Exposure to Second Hand Smoke?: No Hx Substance Use Disorder: No Hx Alcohol Use: No Constitutional Vital Sign - Last 24 Hours 01/16/19 01/16/19 01/16/19 01/16/19 17:20 17:31 17:37 17:50 Temp 97.6 Pulse 74 83 77 Resp 12 B/P (MAP) 159/105 (123) 159/105 Pulse Ox 91 92 90 O2 Delivery Room Air 01/16/19 01/16/19 01/16/19 01/16/19 18:00 18:20 18:30 18:50 Pulse 75 71 B/P (MAP) 132/96 (108) 134/87 (103) Pulse Ox 92 89 01/16/19 19:00 B/P (MAP) 154/96 (115) Physical Exam General Appearance: The patient is alert, has no immediate need for airway protection and no signs of toxicity. Eyes: Pupils equal and round no pallor or injection. ENT, Mouth: Mucous membranes are moist. Respiratory: There are no retractions, lungs are clear to auscultation. Cardiovascular: Regular rate and rhythm. Gastrointestinal: Abdomen is soft and non tender, no masses, bowel sounds normal. Neurological: Alert and oriented 4. Moving all extremities. Following all commands. No focal neuro deficits. Skin: Purple bruising to the posterior right leg, no pitting edema. CMS intact. Musculoskeletal: Neck is supple non tender. Extremities are nontender, nonswollen and have full range of motion. DIFFERENTIAL DIAGNOSIS: After history and physical exam differential diagnosis was considered for DVT, contusion,, muscle strain, abrasion. Medical Decision Making EKG/Imaging Imaging Location: [facility] Patient: Cindy Arreola : 1950 Visit/Account:[id number] Date of Sevice: 01/16/2019 Venous Doppler ultrasound right lower extremity Indication: Right leg pain and bruising.. Comparison: None Available Findings: Duplex Doppler and color flow imaging was performed. The common femoral, femoral, and popliteal veins are all patent and compressible with normal Doppler wave forms. There are normal responses to augmentation. The posterior tibial and peroneal veins are patent in the calf. The proximal greater saphenous vein is also normal. Subcutaneous tissues are unremarkable. IMPRESSION: 1. No evidence of deep venous thrombosis of the right lower extremity. Report Dictated By: Vinny Jerez at 01/16/2019 6:49 PM Report E-Signed By: Vinny Jerez at 01/16/2019 6:50 PM WSN:[id number] ED Course/Re-evaluation ED Course The patient was admitted to a room. A history and physical were obtained. Differential diagnoses were considered. An ultrasound of the right lower extremity was negative for DVT. I did tell the patient this is likely a contusion, and she will continue to experience bruising such as this while she is on Xarelto. Patient expressed understanding and was discharged home. Instruct ed to follow-up with her primary care provider next week for reevaluation if no improvement. Decision to Disposition Date: Jan 16, 2019 Decision to Disposition Time: 18:59 Depart Departure Latest Vital Signs Vital Signs Date Time Temp Pulse Resp B/P (MAP) Pulse Ox O2 Delivery O2 Flow Rate FiO2 01/16/19 19:00 154/96 (115) 01/16/19 18:50 71 89 01/16/19 17:37 97.6 12 Room Air Impression: Primary Impression: Contusion of right calf Condition: Improved Disposition: HOME OR SELF-CARE Referrals: CARLTON ZHONG APRN (PCP) 1 Week Patient Instructions: Blood Thinners (ED), Contusion in Adults (ED) Additional Instructions: There are no concerning findings on the ultrasound of your right leg. This is likely a bruise or muscle strain, this bruising is likely to develop more frequently while on Xarelto. Be sure to drink plenty of water. Get plenty of rest. Follow-up with your primary care provider in one week if no improvement. Return to the ER for any other concerns or worsening symptoms. Problem Qualifiers Primary Impression: Contusion of right calf Encounter type: initial encounter Qualified Codes: S80.11XA - Contusion of right lower leg, initial encounter ELMER WIGGINS-JED Jan 16, 2019 17:33
--- NOTE | 2019-01-16 18:53 | RADIOLOGY IMAGING REPORT ---
FACILITY: [facility] PATIENT NAME: Cindy Arreola : 1950 MR: [id number] V: [id number] EXAM DATE: ORDERING PHYSICIAN: ELMER WIGGINS TECHNOLOGIST: Location: [facility] Patient: Cidny Arreola : 1950 Visit/Account:[id number] Date of Sevice: 01/16/2019 Venous Doppler ultrasound right lower extremity Indication: Right leg pain and bruising.. Comparison: None Available Findings: Duplex Doppler and color flow imaging was performed. The common femoral, femoral, and popl iteal veins are all patent and compressible with normal Doppler wave forms. There are normal respons es to augmentation. The posterior tibial and peroneal veins are patent in the calf. The proximal greater saphenous vein i s also normal. Subcutaneous tissues are unremarkable. IMPRESSION: 1. No evidence of deep venous thrombosis of the right lower extremity. Report Dictated By: Vinny Jerez at 01/16/2019 6:49 PM Report E-Signed By: Vinny Jerez at 01/16/2019 6:50 PM WSN:[id number]
[2019-01-16 19:00] VITALS: BP 154/96
== END 2019-01-16 19:17 | disposition home or self-care (01) ==
LOC: ER 17:29
DX: S80.11XA Contusion of right lower leg, initial encounter (principal)
CPT/HCPCS: 99284

== ENCOUNTER → 2019-02-12 | Outpatient (CLI) | payer BC ==
[2017-09-20 09:37] VITALS: BMI 34.5
[2019-02-12 11:01] LABS: PLATELET COUNT, AUTOMATED 330 K/uL (150-450)
[2019-02-12 11:14] LABS: INR 1.09
== END ==
LOC: LAB 10:46
PROVIDERS: ATTEND Nurse Practitioner Family
DX: Z01.818 Encounter for other preprocedural examination (principal); I10 Essential (primary) hypertension; Z86.718 Personal history of other venous thrombosis and embolism
CPT/HCPCS: 36415; 81001; 82040; 82247; 82310; 82374; 82435; 82565; 82947; 84075; 84132; 84155; 84295; 84450; 84460; 84520; 85025; 85610; 85730

== ENCOUNTER → 2019-02-16 | Outpatient (CLI) | payer BC ==
[2017-09-20 09:37] VITALS: BMI 34.5
--- NOTE | 2019-02-16 15:49 | EKG ---
FACILITY: [facility] - [place] PATIENT NAME: TEJAS MOORE : [id number] MR: [id number] V: [id number] EXAM DATE: ORDERING PHYSICIAN: CARLTON ZHONG TECHNOLOGIST: LAQUITA Test Reason : PRE-OP CLEARANCE Blood Pressure : / mmHG Vent. Rate : 055 BPM Atrial Rate : 055 BPM P-R Int : 134 ms QRS Dur : 072 ms QT Int : 440 ms P-R-T Axes : 045 -16 019 degrees QTc Int : 420 ms Sinus bradycardia Otherwise normal ECG When compared with ECG of 16-JUL-2018 19:06, No significant change was found Confirmed by STEPHEN VASQUEZ ([id number]) on 02/17/2019 5:10:24 PM Referred By: CARLTON ZHONG Confirmed By:STEPHEN VASQUEZ
--- NOTE | 2019-02-16 17:14 | RADIOLOGY IMAGING REPORT ---
FACILITY: [facility] - [place], [place] PATIENT NAME: Cindy Arreola : 1950 MR: [id number] V: [id number] EXAM DATE: ORDERING PHYSICIAN: CARLTON ZHONG TECHNOLOGIST: Location: [facility] [place] Patient: Cindy Arreola : 1950 Visit/Account:[id number] Date of Sevice: 02/16/2019 Exam type: CHEST PA LAT History: Hip, hypertension Comparison: October 16, 2018 Findings: There is a small linear band of scarring versus atelectasis in the left midlung field. There is no e vidence of acute appearing infiltrates pleural effusions or pulmonary edema. The cardiac silhouette is borderline enlarged. There is moderate ectasia of the thoracic aorta. Moderate spondylotic white es of the thoracic spine are present. There are surgical clips in right upper quadrant of abdomen.. IMPRESSION: 1. Linear band of scarring versus atelectasis in the left midlung field Borderline cardiomegaly and moderate ectasia the thoracic aorta unchanged Report Dictated By: Tanisha Colón MD at 02/16/2019 5:08 PM Report E-Signed By: Tanisha Colón MD at 02/16/2019 5:10 PM [place]:PAO
== END ==
LOC: LAB 14:18
PROVIDERS: ATTEND Nurse Practitioner Family
DX: Z01.818 Encounter for other preprocedural examination (principal); I10 Essential (primary) hypertension; Z86.718 Personal history of other venous thrombosis and embolism
CPT/HCPCS: 71046

== ENCOUNTER → 2019-02-18 | Outpatient (CLI) | payer BC ==
[2017-09-20 09:37] VITALS: BMI 34.5
[~2019-02-18] MED LIST changes: +IOPAMIDOL 76% 150 ML INFUS BTL 150 ML ONE; +NS(*) 0.9% 50 ML BAG 50 ML ONE
--- NOTE | 2019-02-18 15:46 | RADIOLOGY IMAGING REPORT ---
FACILITY: [facility] - [place] PATIENT NAME: Cindy Arreola : 1950 MR: [id number] V: [id number] EXAM DATE: ORDERING PHYSICIAN: CARLTON ZHONG TECHNOLOGIST: Location: [facility] [place] Patient: Cindy Arreola : 1950 Visit/Account:[id number] Date of Sevice: 02/18/2019 CT CTA CHEST W & W/O CON HISTORY: Thoracic aortic aneurysm, preop ADDITIONAL HISTORY: None. TECHNIQUE: CTA chest with intravenous contrast. Axial imaging acquired following administration of IV contrast timed for maximum opacification of the pulmonary arterial vasculature. Slab 3-D MIP negro nstructed images were also created for further evaluation and interpretation. Reconstruction of the [facility] data set includes multiplanar 2-D in the sagittal and coronal planes and 3-D reconstructed trino nal slab MIP series. 3-D images were created by the technologist.Dose Lowering Technique One of the following dose optimization techniques was utilized in the performance of this exam: Autom ated exposure control; adjustment of the mA and/or kV according to the patient's size; or use of an i terative reconstruction technique. Specific details can be referenced in the facility's radiology C T exam operational policy. CONTRAST: 75 mL Isovue-370 COMPARISON: July 16, 2018 FINDINGS: Lungs/pleura: There is minimal linear scarring in the right middle lobe, lingula and lower lobes sim ilar to the prior study. No evidence of pleural effusions Heart/vessels: There is mild aneurysmal dilatation of the ascending thoracic aorta measuring approxi mately 4.3 cm in AP dimension this tapers normally at the aortic arch. There is no evidence of the d escending thoracic aortic aneurysm. . There is no evidence of aortic dissection. There are mild ath erosclerotic calcifications in the thoracic aorta and branch vessels including the coronary arteries Mediastinum/lymph nodes: There are several fatty replaced epiphrenic lymph nodes on the right the la rgest measuring approximately 3 x 1.4 cm. Visualized upper abdomen: Bilateral renal cysts Postsurgical changes from a cholecystectomy There is a ventral hernia in the upper abdomen just to the right of midline containing fat. The shimon ia opening measures 3.1 cm in diameter. There is an additional tiny ventral hernia just above the le jose the umbilicus with the hernia opening measuring 8 mm and contains fat Bones/soft tissues: There multiple thyroid nodules measuring up to 1.5 cm in diameter. Thyroid ultr asound may be helpful. There are spondylotic changes in the thoracic spine Additional findings: None IMPRESSION: There is mild aneurysmal dilatation of the ascending thoracic aorta measuring approximately 4.3 cm in AP dimension. This tapers normally at the aortic arch. No evidence of aortic dissection There are two ventral hernias containing fat as described Multiple thyroid nodules for which thyroid ultrasound may be helpful Additional chronic findings Report Dictated By: Tanisha Colón MD at 02/18/2019 3:30 PM Report E-Signed By: Tanisha Colón MD at 02/18/2019 3:41 PM [place]:[email or web address]
== END ==
LOC: CT 00:59
PROVIDERS: ATTEND Nurse Practitioner Family
DX: I71.2 Thoracic aortic aneurysm, without rupture (principal); K43.9 Ventral hernia without obstruction or gangrene; E04.2 Nontoxic multinodular goiter
CPT/HCPCS: 71275; 93306; J7050; Q9967

== ENCOUNTER → 2019-03-05 | Outpatient (CLI) | payer BC ==
[2017-09-20 09:37] VITALS: BMI 34.5
[~2019-03-05] MED LIST changes: -IOPAMIDOL 76% 150 ML INFUS BTL 150 ML ONE; -NS(*) 0.9% 50 ML BAG 50 ML ONE
--- NOTE | 2019-03-05 09:46 | RADIOLOGY IMAGING REPORT ---
FACILITY: [facility] PATIENT NAME: Cindy Arreola : 1950 MR: [id number] V: [id number] EXAM DATE: ORDERING PHYSICIAN: CARLTON ZHONG TECHNOLOGIST: Location: [facility] - [place] Patient: Cindy Arreola : 1950 Visit/Account:[id number] Date of Sevice: 03/05/2019 THYROID HISTORY: thyroid nodule COMPARISON: None. FINDINGS: SIZE: Right lobe: 5.1 x 2 x 1.3 cm Left lobe: 4.2 x 2.2 x 1.9 cm Isthmus: 2 mm PARENCHYMA: Homogeneous. NODULES: Right lobe: * There multiple cystic masses identified within the right lobe the largest is in the inferior right lobe measuring 1.4 cm in diameter * In the inferior right lobe there is a 1 x 0.9 x 0.6 cm well-circumscribed ovoid hypoechoic nodule Left lobe: * In the superior pole of the left lobe there is an 8.6 mm well-circumscribed ovoid hypoechoic nodul e. In the mid left lobe there is a 1.5 cm cystic nodule. Other smaller cystic nodules are identifie d in the left Isthmus: * None discrete. VASCULARITY: Within normal limits. ADDITIONAL FINDINGS: None. IMPRESSION: There bilateral cystic and solid nodules in both lobes of thyroid gland as described above. A six-mo nth follow-up thyroid ultrasounds recommended unless clinical findings were immediate attention REFERENCE: 2015 [place] [employer] Management Guidelines for Adult Patients with Thyroid Nodules and D ifferentiated Thyroid Cancer: The [place] [employer] Guidelines Task Force on Thyroid Nodul es and Differentiated Thyroid Cancer. SONOGRAPHIC PATTERNS: * Benign: Purely cystic nodules (no solid component); estimated risk of malignancy <1 percent; no bi opsy recommended. * Very Low Suspicion: Spongiform or partially cystic nodules without any of the sonographic features described in low, intermediate, or high suspicion patterns; estimated risk of malignancy <3 percent; consider FNA at > 2 cm (Observation without FNA is also a reasonable option). * Low Suspicion: Isoechoic or hyperechoic solid nodule, or partially cystic nodule with eccentric so lid areas, without microcalcification, irregular margin or ETE (extra-thyroidal extension), or taller than wide shape; estimated risk of malignancy 5-10 percent; recommend FNA at >1.5 cm. * Intermediate Suspicion: Hypoechoic solid nodule with smooth margins without microcalcifications, E TE (extra-thyroidal extension), or taller than wide shape; estimated risk of malignancy 10-20 percent ; recommend FNA at > 1 cm. * High Suspicion: Solid hypoechoic nodule or solid hypoechoic component of a partially cystic nodule with one or more of the following features: irregular margins (infiltrative, microlobulated), microc alcifications, taller than wide shape, rim calcifications with small extrusive soft tissue component, evidence of ETE (extra-thyroidal extension); estimated risk of malignancy >70-90 percent; recommend FNA at > 1 cm. NOTES: * Although a sonographically suspicious subcentimeter thyroid nodule without evidence of extrathyroi alberta extension or sonographically suspicious lymph nodes may be observed with close sonographic follow -up rather than pursuing immediate FNA, patient age and preference may modify decision-making. A > 50% interval increase in nodule volume and/or development of new suspicious sonographic features are felt to be a valid reasons for potential re-aspiration of a nodule previously shown to have benig n FNA cytology. Report Dictated By: Tanisha Colón MD at 03/05/2019 9:37 AM Report E-Signed By: Tanisha Colón MD at 03/05/2019 9:40 AM [place]:PAO
== END ==
LOC: US 01:15
PROVIDERS: ATTEND Nurse Practitioner Family
DX: E04.2 Nontoxic multinodular goiter (principal)
CPT/HCPCS: 76536

== ENCOUNTER → 2019-03-10 | Outpatient (CLI) | payer BC ==
[2017-09-20 09:37] VITALS: BMI 34.5
== END ==
LOC: LAB 08:22
PROVIDERS: ATTEND Nurse Practitioner Family
DX: E04.1 Nontoxic single thyroid nodule (principal)
CPT/HCPCS: 36415; 84443

== ENCOUNTER 2019-03-18 06:49 | Emergency (ER) | payer BC ==
[2017-09-20 09:37] VITALS: Wt 94.8 kg
--- NOTE | 2019-03-18 07:05 | ER Report ---
History and Physical Time Seen By MD: 07:03 Hx. of Stated Complaint: EMS REPORTS THE PATIENT FELL THIS MORNING. REPORTING NECK AND BACK PAIN. HPI/ROS CHIEF COMPLAINT: Fall HISTORY OF PRESENT ILLNESS: 68-year-old female frequent visitor to the emergency department for various pain complaints returns emergency department reportedly after having a mechanical fall she said she was walking down stairs and slipped and fell backwards down 2 stairs she said she struck her head no loss of consciousness is complaining of head neck midthoracic and lumbar pain. Patient denies any chest abdominal pain at this time. Patient states that she simply had a mechanical fall lost her balance when she was stepping and missed a step. Patient denies alcohol or illicit drug use. Patient has no additional complaints at this time. REVIEW OF SYSTEMS: Respiratory: No cough, no dyspnea. Cardiovascular: No chest pain, no palpitations. Gastrointestinal: No vomiting, no abdominal pain. Musculoskeletal: Chronic back pain Remainder of the 14 system rev: Yes Allergies: Coded Allergies: trazodone (Verified Allergy, Intermediate, rash, 01/16/19) duloxetine (Verified Allergy, Mild, gout, 01/16/19) stopped by her psych doc due to possible gout reaction iohexol (Verified Allergy, Unknown, 01/16/19) Uncoded Allergies: BANDAIDS (Allergy, Intermediate, ITCHING, 05/21/13) PT STATES SHE GETS ITCHY AND BLISTERS AROUND WOUND ON LEFT ANKLE WHEN SHE WEARS BANDAIDS DOG (Allergy, Mild, EYES MATTED SWELLING, 07/08/10) Contrast Dye (Allergy, Unknown, 11/07/17) IV contrast (Allergy, Unknown, hives, 12/13/14) Home Meds Active Scripts Losartan Potassium (LOSARTAN POTASSIUM) 50 Mg Tablet, 1 TAB PO QDAY, #90 TAB 1 Refill Prov:CARLTON ZHONG APRNP-C 03/02/19 Rivaroxaban 20 Mg (XARELTO 20 MG) 20 Mg Tablet, 1 TAB PO DAILY, #90 TAB 3 Refills Prov:CARLTON ZHONG APRN DRYING SUPERVISOR-C 11/27/18 Escitalopram Oxalate (ESCITALOPRAM OXALATE) 10 Mg Tablet, 1 TAB PO QDAY, #90 TAB 1 Refill Prov:CARLTON ZHONG APRNP-C 10/06/18 Ramelteon (ROZEREM) 8 Mg Tablet, 1 TAB PO QHS PRN for INSOMNIA, #14 TAB 0 Refills Prov:CARLTON ZHONG IP LITIGATION ASSOCIATE DRYING SUPERVISOR-C 09/09/18 Reported Medications Hydrochlorothiazide (HYDROCHLOROTHIAZIDE) 12.5 Mg Capsule 1 tab Mon, Weds and Fri 10/06/18 Reviewed Nurses Notes: Yes Old Medical Records Reviewed: Yes Hx Smoking: Yes (QUIT 1994, 1/2 PPD X 20 YEARS ) Smoking Status: Former Smoker Exposure to Second Hand Smoke?: No Hx Substance Use Disorder: No Hx Alcohol Use: No Constitutional Vital Sign - Last 24 Hours 03/18/19 03/18/19 03/18/19 06:51 07:00 07:49 Temp 97.5 Pulse 67 61 Resp 24 B/P (MAP) 137/94 137/94 (108) Pulse Ox 86 90 O2 Delivery Room Air Physical Exam General Appearance: [The patient is alert, has no immediate need for airway protection and no current signs of toxicity.] Appears uncomfortable has eyes closed Eyes: Pupils equal and round no injection. Respiratory: Chest is non tender, lungs are clear to auscultation. Cardiac: regular rate and rhythm [ ] Gastrointestinal: Abdomen is soft and non tender, no masses, bowel sounds norm al. Musculoskeletal: Even slight palpation of the dermal area in and around the thoracic and lumbar spine elicits severe pain response inconsistent with examination Neck in C-spine precautions no midline tenderness no bony step-offs pain with palpation in and around the C4-C6 level. Extremities have full range of motion and are non tender. Skin: No rashes or lesions. [ ] DIFFERENTIAL DIAGNOSIS: After history and physical exam differential diagnosis was considered for closed head injury C-spine injury thoracic or lumbar spinal injury fall with contusion Medical Decision Making ED Course/Re-evaluation ED Course 68-year-old female comes emergency Department after mechanical fall down 2 stairs claiming she struck her head no loss of consciousness CT of the head C- spine were negative also complaining of mid and lower back pain x-rays of the cervical lumbar and thoracic spine also negative diagnosis contusion status post fall advised fall precautions and follow-up with primary care she has pain medicines at home I advised her to take those as needed Decision to Disposition Date: Mar 18, 2019 Decision to Disposition Time: 08:22 Depart Departure Latest Vital Signs Vital Signs Date Time Temp Pulse Resp B/P (MAP) Pulse Ox O2 Delivery O2 Flow Rate FiO2 03/18/19 07:49 61 90 03/18/19 07:00 137/94 (108) 03/18/19 06:51 97.5 24 Room Air Impression: Primary Impression: Fall Condition: Condition Unchanged Disposition: HOME OR SELF-CARE Referrals: CARLTON ZHONG APRN DRYING SUPERVISOR-C (PCP) 5 Days Patient Instructions: Fall Prevention (DC) JOANN MELVIN MD Mar 18, 2019 07:05
--- NOTE | 2019-03-18 08:10 | RADIOLOGY IMAGING REPORT ---
[place] [facility] [place] Cindy Arreola : 1950 MR: [id number] V: [id number] EXAM DATE: ORDERING PHYSICIAN: JOANN MELVIN TECHNOLOGIST: [place] [facility] [place] Cindy Arreola : 1950 Visit/Account:[id number] Date of Sevice: 03/18/2019 CT BRAIN NO CONTRAST, CT VERTEBRA CERVICAL (NON CON) EXAMINATION: CT head/brain without contrast HISTORY: Fall TECHNIQUE: Contiguous axial images were obtained from the skull base to the vertex without intravenou s contrast. One of the following dose optimization techniques was utilized in the performance of this exam: Autom ated exposure control; adjustment of the mA and/or kV according to the patient's size; or use of an i terative reconstruction technique. Specific details can be referenced in the [facility]'s radiology C T exam operational policy. COMPARISON STUDIES: None FINDINGS: Ventricles/sulci/fissures: Midline in position and normal in configuration Masses/hemorrhage/midline shift: No hemorrhage White matter: No white matter edema or contusion Frost-white differentiation: No cerebral contusion or edema Extra-axial spaces: No subdural or epidural fluid collections. No subarachnoid blood Dural venous sinuses/arterial structures: Negative Skull base/calvarium: No skull fractures. Visualized mastoid air cells/paranasal sinuses: Negative IMPRESSION: Negative CT scan of the head for acute intracranial pathology CT scan of the cervical spine TECHNIQUE: Contiguous axial images were obtained from the skull base through the upper thoracic spin e without IV contrast administration. Coronal and sagittal reformatted images were obtained from the axial source data. One of the following dose optimization techniques was utilized in the performance of this exam: Automated exposure control; adjustment of the mA and/or kV according to the patient's s ize; or use of an iterative reconstruction technique. Specific details can be referenced in the [facility]'s radiology CT exam operational policy. FINDINGS: Alignment: Cervical spine is aligned. No evidence of subluxation. Vertebral bodies: Osseous structures intact. No evidence of fracture. Discs: Negative. Mild cervical disc degenerative changes manifesting primarily as posterior bony bar changes extending into the left lateral recess aspects of the C5-6 and C6-7 levels. Multilevel forami nal narrowing changes seen throughout the cervical spine from facet hypertrophy and uncovertebral DJD changes. Para-vertebral soft tissues: Hypoattenuated thyroid lesions compatible with cysts/solid nodules on recent ultrasound. Visualized lung / mediastinum: Visualized lung parenchyma normal. No evidence of pneumothorax. IMPRESSION: 1. Negative cervical spine for acute bony pathology. DJD changes as described. 2. Thyroid lesions. Recent ultrasound from 03/05/2019 documented solid and cystic lesions. Report Dictated By: Harshil Wilson MD at 03/18/2019 7:41 AM Report E-Signed By: Harshil Wilson MD at 03/18/2019 8:06 AM WSN:[id number]
--- NOTE | 2019-03-18 08:10 | RADIOLOGY IMAGING REPORT ---
FACILITY: [facility] PATIENT NAME: Cindy Arreola : 1950 MR: [id number] V: [id number] EXAM DATE: ORDERING PHYSICIAN: JOANN MELVIN TECHNOLOGIST: Location: [facility] Patient: Cindy Arreola : 1950 Visit/Account:[id number] Date of Sevice: 03/18/2019 CT BRAIN NO CONTRAST, CT VERTEBRA CERVICAL (NON CON) EXAMINATION: CT head/brain without contrast HISTORY: Fall TECHNIQUE: Contiguous axial images were obtained from the skull base to the vertex without intravenou s contrast. One of the following dose optimization techniques was utilized in the performance of this exam: Autom ated exposure control; adjustment of the mA and/or kV according to the patient's size; or use of an i terative reconstruction technique. Specific details can be referenced in the [facility]'s radiology C T exam operational policy. COMPARISON STUDIES: None FINDINGS: Ventricles/sulci/fissures: Midline in position and normal in configuration Masses/hemorrhage/midline shift: No hemorrhage White matter: No white matter edema or contusion Frost-white differentiation: No cerebral contusion or edema Extra-axial spaces: No subdural or epidural fluid collections. No subarachnoid blood Dural venous sinuses/arterial structures: Negative Skull base/calvarium: No skull fractures. Visualized mastoid air cells/paranasal sinuses: Negative IMPRESSION: Negative CT scan of the head for acute intracranial pathology CT scan of the cervical spine TECHNIQUE: Contiguous axial images were obtained from the skull base through the upper thoracic spin e without IV contrast administration. Coronal and sagittal reformatted images were obtained from the axial source data. One of the following dose optimization techniques was utilized in the performance of this exam: Automated exposure control; adjustment of the mA and/or kV according to the patient's s ize; or use of an iterative reconstruction technique. Specific details can be referenced in the [facility]'s radiology CT exam operational policy. FINDINGS: Alignment: Cervical spine is aligned. No evidence of subluxation. Vertebral bodies: Osseous structures intact. No evidence of fracture. Discs: Negative. Mild cervical disc degenerative changes manifesting primarily as posterior bony bar changes extending into the left lateral recess aspects of the C5-6 and C6-7 levels. Multilevel forami nal narrowing changes seen throughout the cervical spine from facet hypertrophy and uncovertebral DJD changes. Para-vertebral soft tissues: Hypoattenuated thyroid lesions compatible with cysts/solid nodules on recent ultrasound. Visualized lung / mediastinum: Visualized lung parenchyma normal. No evidence of pneumothorax. IMPRESSION: 1. Negative cervical spine for acute bony pathology. DJD changes as described. 2. Thyroid lesions. Recent ultrasound from 03/05/2019 documented solid and cystic lesions. Report Dictated By: Harshil Wilson MD at 03/18/2019 7:41 AM Report E-Signed By: Harshil Wilson MD at 03/18/2019 8:06 AM WSN:[id number]
[2019-03-18 08:12] VITALS: BP 125/96
--- NOTE | 2019-03-18 08:12 | RADIOLOGY IMAGING REPORT ---
FACILITY: [facility] - [place] PATIENT NAME: Cindy Arreola : 1950 MR: [id number] V: [id number] EXAM DATE: ORDERING PHYSICIAN: JOANN MELVIN TECHNOLOGIST: Location: [facility] [place] Patient: Cindy Arreola : 1950 Visit/Account:[id number] Date of Sevice: 03/18/2019 L-SPINE 2 OR 3 VIEW HISTORY: fall AP and lateral lumbar spine films FINDINGS: No acute compression deformities or fractures. Alignments well-maintained. Disc spaces are normal oth er than the L5-S1 level and demonstrates moderately severe narrowing change. Facet arthropathy change s of a moderate degree at the L4-5 and L5-S1 level. SI joints are unremarkable. IMPRESSION: 1. Negative lumbar spine for acute bony pathology. Moderately advanced disc degenerative changes at t he L5-S1 level. Report Dictated By: Harshil Wilson MD at 03/18/2019 8:06 AM Report E-Signed By: Harshil Wilson MD at 03/18/2019 8:08 AM WSN:[id number]
--- NOTE | 2019-03-18 08:17 | RADIOLOGY IMAGING REPORT ---
FACILITY: [facility] PATIENT NAME: Cindy Arreola : 1950 MR: [id number] V: [id number] EXAM DATE: ORDERING PHYSICIAN: JOANN MELVIN TECHNOLOGIST: Location: [facility] - [place] Patient: Cindy Arreola : 1950 Visit/Account:[id number] Date of Sevice: 03/18/2019 XR THORACIC SPINE AP & LAT HISTORY: fall AP and lateral thoracic spine films FINDINGS: No acute bony pathology. Vertebral bodies are well maintained with respect to height and alignment wi th no acute compression fractures. Posterior months well-maintained and aligned. Symmetric disc space narrowing changes throughout the thoracic spine. Lateralizing osteophytes noted at the T7 through th e T11 level. Prominent anterior osteophyte seen at the T9-T10 level. IMPRESSION: 1. Negative thoracic spine for acute bony pathology. Report Dictated By: Harshil Wilson MD at 03/18/2019 8:08 AM Report E-Signed By: Harshil Wilson MD at 03/18/2019 8:11 AM WSN:[id number]
== END 2019-03-18 08:44 | disposition home or self-care (01) ==
LOC: ER 06:57
DX: R51 Headache (principal); M54.2 Cervicalgia; M54.5 Low back pain; W10.9XXA Fall (on) (from) unspecified stairs and steps, initial encounter
CPT/HCPCS: 70450; 72070; 72100; 72125; 99284

== ENCOUNTER → 2019-03-18 | Outpatient (CLI) | payer BC ==
[2017-09-20 09:37] VITALS: BMI 34.5
== END ==
LOC: AMB 06:26
PROVIDERS: ATTEND Nurse Practitioner
DX: M54.5 Low back pain (principal); R10.2 Pelvic and perineal pain; R51 Headache; W10.8XXA Fall (on) (from) other stairs and steps, initial encounter
CPT/HCPCS: A0425; A0427

== ENCOUNTER → 2019-04-13 | Outpatient (CLI) | payer BC ==
[2017-09-20 09:37] VITALS: BMI 34.5
[2019-04-13 16:26] LABS: PLATELET COUNT, AUTOMATED 264 K/uL (150-450)
== END ==
LOC: LAB 16:06
PROVIDERS: ATTEND Nurse Practitioner Family
DX: R60.9 Edema, unspecified (principal)
CPT/HCPCS: 36415; 82040; 82247; 82310; 82374; 82435; 82565; 82947; 83880; 84075; 84132; 84155; 84295; 84450; 84460; 84520; 85025

== ENCOUNTER → 2019-05-22 | Outpatient (CLI) | payer BC ==
[2017-09-20 09:37] VITALS: BMI 34.5
[~2019-05-22] MED LIST changes: +COLC0.6T2 PO; +FURO-45 PO; +POTA-23 PO
== END ==
LOC: LAB 09:13
PROVIDERS: ATTEND Nurse Practitioner Family
DX: M10.9 Gout, unspecified (principal); Z79.899 Other long term (current) drug therapy
CPT/HCPCS: 36415; 82310; 82374; 82435; 82565; 82947; 84132; 84295; 84520; 84550

== ENCOUNTER → 2019-06-15 | Outpatient (CLI) | payer BC ==
[2017-09-20 09:37] VITALS: BMI 34.5
[2019-06-15 07:44] LABS: PLATELET COUNT, AUTOMATED 249 K/uL (150-450)
== END ==
LOC: LAB 07:26
PROVIDERS: ATTEND Nurse Practitioner Family
DX: R60.9 Edema, unspecified (principal); I10 Essential (primary) hypertension; F41.9 Anxiety disorder, unspecified
CPT/HCPCS: 36415; 82040; 82247; 82310; 82374; 82435; 82465; 82565; 82947; 83718; 84075; 84132; 84155; 84295; 84443; 84450; 84460; 84478; 84520; 85025

== ENCOUNTER → 2019-06-15 | Outpatient (CLI) | payer BC ==
[2017-09-20 09:37] VITALS: BMI 34.5
--- NOTE | 2019-06-15 11:53 | EKG ---
FACILITY: [facility] PATIENT NAME: TEJAS MOORE : [id number] MR: [id number] V: [id number] EXAM DATE: ORDERING PHYSICIAN: CARLTON ZHONG TECHNOLOGIST: CRISTINA Test Reason : SOB Blood Pressure : / mmHG Vent. Rate : 053 BPM Atrial Rate : 053 BPM P-R Int : 108 ms QRS Dur : 082 ms QT Int : 472 ms P-R-T Axes : 056 003 027 degrees QTc Int : 442 ms Sinus bradycardia with short NC Otherwise normal ECG When compared with ECG of 16-FEB-2019 13:25, No significant change was found Confirmed by STEPHEN VASQUEZ ([id number]) on 06/15/2019 2:44:57 PM Referred By: TREVIN Confirmed By:STEPHEN VASQUEZ
== END ==
LOC: RESP 08:41
PROVIDERS: ATTEND Nurse Practitioner Family
DX: R07.89 Other chest pain (principal); R06.02 Shortness of breath; R00.1 Bradycardia, unspecified
CPT/HCPCS: 36415; 84484; 85379

== ENCOUNTER → 2019-07-03 | Outpatient (CLI) | payer BC ==
[2017-09-20 09:37] VITALS: BMI 34.5
[~2019-07-03] MED LIST changes: +HYDR25CA13 PO
== END ==
LOC: RESP 03:34
PROVIDERS: ATTEND Nurse Practitioner Family
DX: R06.02 Shortness of breath (principal)
CPT/HCPCS: 94060; 94726; 94729